=== PATIENT | male | born 1985 | race Caucasian/White ===

== ENCOUNTER 2017-05-08 12:01 | Emergency (ER) | payer MEDICAID ==
[2017-05-08 12:04] VITALS: BP 140/101; PULSE 97; RESP 18; TEMP 98.1; O2SAT 96
--- NOTE | 2017-05-08 12:56 | EDPHY ---
General Narrative: CHIEF COMPLAINT: back pain, sciatica HISTORY OF PRESENT ILLNESS: The patient complains of 9 days history of low back pain. He reports is consistent with previous sciatica. Diagnosed with sciatica in 2007. He has had intermittent flares with this. Pain starts in the left SI region and left buttock. It radiates down the left leg to the foot. No numbness or tingling. No weakness. Pain is currently 1/10. It is worse when he stands up and ambulates. It is worse when he is on his feet for prolonged periods. He has no midline tenderness of any kind. He has no incontinence of bowel or bladder. No trauma or injury. He has seen a chiropractor had massage with minimal improvement. No other associated complaints or modifying factors. ESTABLISHED ORTHOPEDIST: None REVIEW OF SYSTEMS: Ten systems reviewed and are negative unless otherwise noted in the HPI PAST MEDICAL HISTORY: Sciatica PAST SURGICAL HISTORY: Hernia repair as a child SOCIAL HISTORY: Nonsmoker. Occasional alcohol use. Daily marijuana use. Works as a assistant restaurant general manager FAMILY HISTORY: Noncontributory EXAMINATION General Appearance: Alert, no distress Neck: Normal appearance. Supple nontender Cardiovascular: Pulses normal throughout with symmetric DP and PT pulses 2.. Brisk cap refill Neurological: A&O, light sensation intact to the top of both feet. No proprioception of the left great toe. No foot drop. Strength is symmetric in the hips, knees and ankles. Patellar reflexes symmetric at 2+. Mildly positive left straight leg raise. Skin: Warm and dry, no rash no petechiae or purpura. No cellulitis. Extremities: Mild tenderness of the left S and proximal buttock. Range of motion of the extremities symmetric. Psychiatric: Mood and affect normal DIFFERENTIAL DIAGNOSES: Including but not limited to lumbar radiculopathy, sciatica, acute cord compression, lumbar fracture, muscular strain, sprain MDM: 12:55 p.m. Acute left lower back pain that radiates in the leg consistent with sciatica. He is neuro intact. He has no midline tenderness of the lumbar spine. He is fully ambulatory without difficulty. No history or examination that would suggest acute cord involvement. I do not feel he warrants any imaging at this time. I will treat him with short course of symptoms medications. I feel he would benefit from physical therapy, thus I will provide the on-call primary care physician. He will contact her to establish as a new patient and for follow-up. We discussed ED precautions for worsening pain, weakness of the leg , midline tenderness, incontinence or sensory changes. He is comfortable this plan and discharged home stable condition. SUPERVISION: This patient was independently evaluated without direct involvement of or examination by the attending physician. ED Precautions: Worsening pain. Erythema, edema, cyanosis, pallor, paresthesia or anesthesia. - History Smoking Status: Never smoked - Objective Vital Signs: Initial Vital Signs Temperature (C) 98.1 F 05/08/17 12:02 Heart Rate 97 05/08/17 12:02 Respiratory Rate 18 05/08/17 12:02 Blood Pressure 140/101 H 05/08/17 12:02 O2 Sat (%) 96 05/08/17 12:02 O2 Delivery Mode Room Air Allergies/Adverse Reactions: No Known Allergies Allergy (Unverified 05/08/17 12:04) Home Medications: Medication Instructions Recorded Cyclobenzaprine [Flexeril 10 MG 10 mg PO TID PRN #15 tab 05/08/17 (*)] oxyCODONE HCL/ACETAMINOPHEN 1 each PO Q4-6PRN PRN #7 tablet 05/08/17 [Percocet 5-325 mg Tablet] predniSONE [Deltasone] 60 mg PO DAILY #12 tablet 05/08/17 Departure - Departure Disposition: Home, Routine, Self-Care Clinical Impression: Sciatica of left side Acute low back pain Qualifiers: Back pain laterality: left Sciatica presence: with sciatica Sciatica laterality : sciatica of left side Qualified Code(s): M54.42 - Lumbago with sciatica, left side Condition: Good Instructions: Sciatica (ED), Piriformis Syndrome (ED), Lower Back Exercises (ED ) Additional Instructions: 1. Medications as prescribed as needed 2. Contact the on-call primary care physician Dr. Quan as provided. Recommend outpatient follow-up early next week 3. ED precautions for any worsening pain, numbness, tingling, weakness , difficulty urinating, incontinence, or midline pain Referrals: Valeria Quan MD [Medical Doctor] - As per Instructions Stand Alone Forms: Work Excuse Prescriptions: Cyclobenzaprine [Flexeril 10 MG (*)] 10 mg PO TID PRN #15 tab PRN Reason: Spasms oxyCODONE HCL/ACETAMINOPHEN [Percocet 5-325 mg Tablet] 1 each PO Q4-6PRN PRN #7 tablet PRN Reason: Pain, Breakthrough predniSONE [Deltasone] 60 mg PO DAILY #12 tablet
== END 2017-05-08 13:00 | disposition home or self-care (01) ==
DX: M54.42 Lumbago with sciatica, left side (principal)